=== PATIENT | female | born 1990 | race Caucasian/White ===

== ENCOUNTER 2017-11-20 09:56 | Outpatient (RCR) | payer MEDICAID, SELFPAY | END 2017-11-20 09:57 | disposition home or self-care (01) | LOC: ST 09:56 | PROVIDERS: Visit Provider Internal Medicine Endocrinology, Diabetes & Metabolism | DX: Z98.890 Other specified postprocedural states (principal) | CPT/HCPCS: 92524 ==

== ENCOUNTER → 2017-11-30 09:58 | Outpatient (CLI) | payer MEDICAID, SELFPAY ==
--- NOTE | 2017-11-30 09:59 | FL_ITS ---
EXAM: Barium swallow/esophagram. INDICATION: Dysphasia ITS.REASON: dysphagia, POST TRACHE REMOVAL ORDERING PHYSICIAN: Kahlil Lewis MD PATIENT AGE: 27 years COMPARISON: None TECHNIQUE: In the upright position the patient was observed to swallow barium in both the AP and lateral view. The cervical esophagus was examined under fluoroscopy with images obtained. The patient was then placed prone in the right anterior oblique position and was observed to swallow barium with Valsalva technique . FLUOROSCOPY TIME: 48 seconds FINDINGS: There was no evidence of aspiration. There was normal peristalsis. No filling defects or mucosal abnormalities. No masses or strictures. IMPRESSION: Negative barium swallow.
[2017-11-30 10:35] LABS: Urine Pregnancy, HCG Qual. Negative (Negative)
== END ==
PROVIDERS: PCP Emergency Medicine; Visit Provider Otolaryngology
DX: R13.12 Dysphagia, oropharyngeal phase (principal); Z32.00 Encounter for pregnancy test, result unknown
CPT/HCPCS: 74220; 81025